=== PATIENT | female | born 1975 | race Two or more races ===

== ENCOUNTER 2021-09-28 00:18 | Emergency (ER) | payer OTHER ==
[~2021-09-28] VITALS: Ht 162.6 cm; Wt 136.1 kg
[2021-09-28 01:18] LABS: Basophils # (auto) 0.1 10 ^3/uL (0-0.2); Basophils % (auto) 1.1 % (0.0-2.0); Eosinophils # (auto) 0.2 10 ^3/uL (0-0.8); Eosinophils % (auto) 2.2 % (0.0-7.0); Hemoglobin 14.6 g/dL (12.2-16.2); Lymphocytes # (auto) 2.8 10 ^3/uL (0.4-5.4); Lymphocytes % (auto) 31.8 % (10.0-50.0); Mean Corpuscular Hemoglobin 33.2 pg (28.0-32.0); Mean Corpuscular Hgb Conc. 34.9 g/dL (32.0-36.0); Mean Corpuscular Volume 95.3 fL (80.0-100.0); Monocytes # (auto) 0.6 10 ^3/uL (0-1.3); Monocytes % (auto) 7.3 % (0.0-12.0); Neutrophils # (auto) 5.1 10 ^3/uL (1.6-8.6); Neutrophils % (auto) 57.6 % (37.0-80.0); Red Cell Distribution Width 13.3 % (11.8-14.3); White Blood Cell 8.8 10^3/uL (4.4-10.8)
[2021-09-28 01:30] LABS: Urine Bacteria FEW /hpf (None Seen); Urine Blood 1+ /uL (Negative); Urine Mucus FEW (None Seen); Urine Specific Gravity 1.026 (1.001-1.035); Urine WBC 5 /hpf (0 - 5)
[2021-09-28 01:38] LABS: BUN/Creatinine Ratio 21.1; Calcium 8.6 mg/dL (8.5-10.1); Potassium 3.5 mmol/L (3.5-5.1)
[2021-09-28 01:40] LABS: Bilirubin, Total 0.2 mg/dL (0.2-1.0); Total Protein 7.3 g/dL (6.4-8.2)
[2021-09-28 03:49] VITALS: BP 126/73
[2021-09-28] MEDS ORDERED: METR500T PO (15:04)
[2021-09-28] MEDS ORDERED: LEVO500T31 PO (15:04)
== END 2021-09-28 03:58 | disposition home or self-care (01) ==
LOC: EDSEX 00:18 → ER 00:18
DX: K92.2 Gastrointestinal hemorrhage, unspecified (principal); Z88.0 Allergy status to penicillin; Z88.6 Allergy status to analgesic agent
CPT/HCPCS: 36415; 80053; 81001; 85025

== ENCOUNTER 2021-09-28 10:25 | Emergency (ER) | payer OTHER, MEDICAID ==
[~2021-09-28] VITALS: Ht 162.6 cm; Wt 132.4 kg
[2021-09-28 13:30] LABS: Basophils # (auto) 0.2 10 ^3/uL (0-0.2); Basophils % (auto) 2.1 % (0.0-2.0); Eosinophils # (auto) 0.2 10 ^3/uL (0-0.8); Eosinophils % (auto) 2.1 % (0.0-7.0); Hemoglobin 15.2 g/dL (12.2-16.2); Lymphocytes # (auto) 2.3 10 ^3/uL (0.4-5.4); Lymphocytes % (auto) 26.7 % (10.0-50.0); Mean Corpuscular Hemoglobin 32.9 pg (28.0-32.0); Mean Corpuscular Hgb Conc. 34.6 g/dL (32.0-36.0); Mean Corpuscular Volume 94.9 fL (80.0-100.0); Monocytes # (auto) 0.6 10 ^3/uL (0-1.3); Monocytes % (auto) 6.6 % (0.0-12.0); Neutrophils # (auto) 5.4 10 ^3/uL (1.6-8.6); Neutrophils % (auto) 62.5 % (37.0-80.0); Nucleated Red Blood Cells % 0.1 %; Red Blood Cells 4.64 10^6/uL (4.0-5.20); Red Cell Distribution Width 13.1 % (11.8-14.3); White Blood Cell 8.7 10^3/uL (4.4-10.8)
[2021-09-28 13:46] LABS: INR 0.97 (0.9-1.15); Partial Thromboplastin Time 27.6 sec (23.6-33.0)
[2021-09-28 14:15] LABS: Albumin 3.3 g/dL (3.4-5.0); BUN/Creatinine Ratio 15.7; Calcium 8.9 mg/dL (8.5-10.1); Magnesium 2.4 mg/dL (1.6-2.6); Potassium 3.5 mmol/L (3.5-5.1)
[2021-09-28 14:20] LABS: Urine Bacteria NONE SEEN /hpf (None Seen); Urine Blood 1+ /uL (Negative); Urine Mucus FEW (None Seen); Urine Specific Gravity 1.026 (1.001-1.035); Urine WBC 3 /hpf (0 - 5)
[2021-09-28 14:23] LABS: Bilirubin, Total 0.6 mg/dL (0.2-1.0); Total Protein 7.7 g/dL (6.4-8.2)
[2021-09-28] MEDS ORDERED: LEVO500T31 PO (15:04)
[2021-09-28] MEDS ORDERED: METR500T PO (15:04)
[2021-09-28 15:10] VITALS: BP 160/98
== END 2021-09-28 15:12 | disposition home or self-care (01) ==
LOC: ER 10:28
DX: K92.2 Gastrointestinal hemorrhage, unspecified (principal); K52.9 Noninfective gastroenteritis and colitis, unspecified; Z88.6 Allergy status to analgesic agent; Z88.0 Allergy status to penicillin
CPT/HCPCS: 36415; 74176; 80053; 81001; 83735; 83880; 85025; 85610; 85730

== ENCOUNTER → 2021-09-29 | Outpatient (CLI) | payer OTHER, MEDICAID ==
[~2021-09-29] MED LIST: LEVO500T31 PO; METR500T PO
[2021-09-29 09:01] LABS: Basophils # (auto) 0.1 10 ^3/uL (0-0.2); Basophils % (auto) 0.9 % (0.0-2.0); Eosinophils # (auto) 0.2 10 ^3/uL (0-0.8); Eosinophils % (auto) 2.3 % (0.0-7.0); Hematocrit 42.7 % (36.0-46.0); Hemoglobin 14.9 g/dL (12.2-16.2); Lymphocytes # (auto) 2.3 10 ^3/uL (0.4-5.4); Mean Corpuscular Hemoglobin 33.1 pg (28.0-32.0); Mean Corpuscular Volume 94.7 fL (80.0-100.0); Monocytes # (auto) 0.5 10 ^3/uL (0-1.3); Monocytes % (auto) 6.5 % (0.0-12.0); Neutrophils # (auto) 4.8 10 ^3/uL (1.6-8.6); Neutrophils % (auto) 61.3 % (37.0-80.0); Nucleated Red Blood Cells % 0.1 %; Red Blood Cells 4.51 10^6/uL (4.0-5.20); Red Cell Distribution Width 13.5 % (11.8-14.3); White Blood Cell 7.8 10^3/uL (4.4-10.8)
[2021-09-29 09:11] LABS: Urine Bacteria MOD /hpf (None Seen); Urine Blood 1+ /uL (Negative); Urine Specific Gravity 1.019 (1.001-1.035); Urine WBC 1 /hpf (0 - 5)
[2021-09-29 09:37] LABS: Potassium 3.7 mmol/L (3.5-5.1)
[2021-09-29 09:45] LABS: Albumin 3.3 g/dL (3.4-5.0); BUN/Creatinine Ratio 18.3; Bilirubin, Total 0.5 mg/dL (0.2-1.0); Calcium 9.1 mg/dL (8.5-10.1); Total Protein 7.8 g/dL (6.4-8.2)
== END | disposition home or self-care (01) ==
LOC: LAB 08:27
PROVIDERS: ATTEND Student in an Organized Health Care Education/Training Program
DX: I10 Essential (primary) hypertension (principal); R73.9 Hyperglycemia, unspecified; M32.9 Systemic lupus erythematosus, unspecified
CPT/HCPCS: 36415; 80053; 80061; 81001; 83036; 84443; 85025; 86431

== ENCOUNTER 2022-03-04 13:01 | Day surgery (SDC) | payer OTHER, MEDICAID ==
[2022-03-03 12:23] LABS: Basophils # (auto) 0.1 10 ^3/uL (0-0.2); Basophils % (auto) 1.1 % (0.0-2.0); Eosinophils # (auto) 0.1 10 ^3/uL (0-0.8); Eosinophils % (auto) 1.6 % (0.0-7.0); Hematocrit 44.4 % (36.0-46.0); Hemoglobin 15.1 g/dL (12.2-16.2); Lymphocytes # (auto) 2.6 10 ^3/uL (0.4-5.4); Lymphocytes % (auto) 31.7 % (10.0-50.0); Mean Corpuscular Hemoglobin 31.9 pg (28.0-32.0); Mean Corpuscular Hgb Conc. 34.1 g/dL (32.0-36.0); Mean Corpuscular Volume 93.6 fL (80.0-100.0); Monocytes # (auto) 0.7 10 ^3/uL (0-1.3); Monocytes % (auto) 8.1 % (0.0-12.0); Neutrophils # (auto) 4.8 10 ^3/uL (1.6-8.6); Neutrophils % (auto) 57.5 % (37.0-80.0); Nucleated Red Blood Cells % 0.1 %; Red Blood Cells 4.74 10^6/uL (4.0-5.20); Red Cell Distribution Width 13.6 % (11.8-14.3); White Blood Cell 8.3 10^3/uL (4.4-10.8)
[2022-03-03 13:04] LABS: Albumin 3.7 g/dL (3.4-5.0); Calcium 9.1 mg/dL (8.5-10.1); Potassium 3.6 mmol/L (3.5-5.1)
[2022-03-03 13:10] LABS: BUN/Creatinine Ratio 17.9; Bilirubin, Total 0.9 mg/dL (0.2-1.0); Total Protein 7.5 g/dL (6.4-8.2)
[2022-03-03 13:12] LABS: INR 0.97 (0.9-1.15); Partial Thromboplastin Time 29.1 sec (24.6-33.4)
[~2022-03-04] VITALS: Ht 162.6 cm; Wt 131.5 kg
[~2022-03-04 13:01] MED LIST changes: +BACL20TA PO; +CEL100T PO; +GABA300C10 PO; +LEVE500T32 PO; -LEVO500T31 PO; +LURA40TA PO; -METR500T PO; +TOPI1CAP12 PO; +TRAZ100T3 PO
[2022-03-04] MEDS ORDERED: SODIUM CHLORIDE LOCK 10 ML ONE (15:36)
[2022-03-04] MEDS ORDERED: LIDOCAINE VISCOUS 2% 15ML UD ONE (15:38)
[2022-03-04] MEDS: fentaNYL CITRATE 100 MCG/2 ML VL ONE ×2 (16:04→16:07)
[2022-03-04] MEDS: MIDAZOLAM HCL 5 MG/ML-1ML VIAL ONE ×3 (16:04→16:10)
[2022-03-04] MEDS: diphenhdrAMINE HCL 50 MG/1 ML VL ONE ×2 (16:04→16:05)
[2022-03-04 16:35] VITALS: BP 128/72
== END 2022-03-04 17:07 | disposition home or self-care (01) ==
LOC: GI 13:01
PROVIDERS: ATTEND Internal Medicine Gastroenterology
DX: K52.9 Noninfective gastroenteritis and colitis, unspecified (principal); K64.8 Other hemorrhoids; I10 Essential (primary) hypertension; G62.9 Polyneuropathy, unspecified; Z90.49 Acquired absence of other specified parts of digestive tract; Z79.899 Other long term (current) drug therapy; Z20.822 Contact with and (suspected) exposure to COVID-19; Z86.73 Personal history of transient ischemic attack (TIA), and cerebral infarction without residual deficits; Z98.891 History of uterine scar from previous surgery
CPT/HCPCS: 36415; 45380; 80053; 84702; 85025; 85610; 85730; 88305; J1200; J2250; J3010; J7030; U0003; 99152

== ENCOUNTER → 2022-04-29 | Emergency (ER) | payer OTHER, MEDICAID | END | disposition left against medical advice (07) | LOC: ER 18:14 | DX: M25.512 Pain in left shoulder (principal); Z53.21 Procedure and treatment not carried out due to patient leaving prior to being seen by health care provider ==

== ENCOUNTER 2024-01-31 09:22 | Emergency (ER) | payer OTHER ==
[~2024-01-31] VITALS: Ht 162.6 cm; Wt 120.0 kg
[~2024-01-31 09:22] MED LIST changes: +GABA-1250 PO; -GABA300C10 PO; -LEVE500T32 PO; +LEVE500T40 PO; -LURA40TA PO; +LURA40TA2 PO; +TRAZ-228 PO; -TRAZ100T3 PO
[2024-01-31] MEDS: HYDROmorphone HCL 2 MG/ML VL/or syr IV ONE (11:00)
[2024-01-31] MEDS: SODIUM CHLORIDE 0.9% 500 ML IVB ONE (11:11)
[2024-01-31] MEDS: METOCLOPRAMIDE HCL 5MG/ml INJ 2ml VIAL IV ONE (11:23)
[2024-01-31] MEDS: DexAMETHasone SOD PHOS 10MG/1ML VIAL INJ IV ONE (11:24)
[2024-01-31 12:00] LABS: Basophils # (auto) 0 10 ^3/uL (0-0.2); Basophils % (auto) 0.4 % (0.0-2.0); Eosinophils # (auto) 0 10 ^3/uL (0-0.8); Eosinophils % (auto) 0.3 % (0.0-7.0); Hematocrit 42.6 % (36.0-46.0); Hemoglobin 14.9 g/dL (12.2-16.2); Lymphocytes # (auto) 1.6 10 ^3/uL (0.4-5.4); Lymphocytes % (auto) 13.8 % (10.0-50.0); Mean Corpuscular Hemoglobin 33.8 pg (28.0-32.0); Mean Corpuscular Hgb Conc. 34.9 g/dL (32.0-36.0); Mean Corpuscular Volume 96.9 fL (80.0-100.0); Monocytes # (auto) 0.4 10 ^3/uL (0-1.3); Monocytes % (auto) 3.5 % (0.0-12.0); Neutrophils # (auto) 9.3 10 ^3/uL (1.6-8.6); Nucleated Red Blood Cells % 0.1 %; Platelet Count (auto) 282 10^3/uL (140-450); Red Cell Distribution Width 13.1 % (11.8-14.3); White Blood Cell 11.3 10^3/uL (4.4-10.8)
[2024-01-31 12:08] LABS: Alanine Aminotransferase 10 U/L (7-40); Albumin 4.4 g/dL (3.2-4.8); Alkaline Phosphatase 93 U/L (46-116); Anion Gap 8 (5-15); Aspartate Aminotransferase 9 U/L (13-40); BUN/Creatinine Ratio 23.2 (10.0-20.0); Blood Urea Nitrogen 19 mg/dL (9-23); Calcium 9.1 mg/dL (8.7-10.4); Carbon Dioxide 24 mmol/L (20-30); Chloride 109 mmol/L (98-107); Glucose 100 mg/dL (74-106); Lipase 32 U/L (12-53); Magnesium 1.9 mg/dL (1.6-2.6); Potassium 3.7 mmol/L (3.5-5.1); Sodium 141 mmol/L (136-145)
[2024-01-31 12:10] LABS: INR 0.99 (0.9-1.15); Partial Thromboplastin Time 25.4 SEC (24.5-34.5); Prothrombin Time 10.5 sec (9.3-11.8)
[2024-01-31 15:20] VITALS: BP 115/74; PULSE 62; RESP 15; TEMP 98; O2SAT 100
== END 2024-01-31 15:22 | disposition home or self-care (01) ==
LOC: ER 09:22
DX: K52.9 Noninfective gastroenteritis and colitis, unspecified (principal); K92.2 Gastrointestinal hemorrhage, unspecified; R10.9 Unspecified abdominal pain; I10 Essential (primary) hypertension; Z88.0 Allergy status to penicillin; Z79.899 Other long term (current) drug therapy; Z88.6 Allergy status to analgesic agent
CPT/HCPCS: 36415; 71046; 74176; 80053; 83690; 83735; 85025; 85610; 85730; 96361; 96374; 96375; 99285; J1100; J1170; J2765; J7030; J7040

== ENCOUNTER → 2024-03-23 | Outpatient (CLI) | payer OTHER | END | disposition home or self-care (01) | LOC: LAB 10:06 | PROVIDERS: ATTEND Specialist | DX: K75.4 Autoimmune hepatitis (principal); R19.7 Diarrhea, unspecified | CPT/HCPCS: 86038 ==

== ENCOUNTER → 2024-03-30 | Outpatient (CLI) | payer OTHER | END | disposition home or self-care (01) | LOC: LAB 11:15 | PROVIDERS: ATTEND Specialist | DX: K75.4 Autoimmune hepatitis (principal); R19.7 Diarrhea, unspecified | CPT/HCPCS: 85048; 87177 ==

== ENCOUNTER → 2024-07-11 | Outpatient (CLI) | payer OTHER ==
[2024-07-11 11:11] LABS: Basophils # (auto) 0.1 10 ^3/uL (0-0.2); Basophils % (auto) 1.1 % (0.0-2.0); Eosinophils # (auto) 0.2 10 ^3/uL (0-0.8); Eosinophils % (auto) 1.8 % (0.0-7.0); Hematocrit 45.2 % (36.0-46.0); Hemoglobin 15.4 g/dL (12.2-16.2); Lymphocytes # (auto) 2.3 10 ^3/uL (0.4-5.4); Lymphocytes % (auto) 26.4 % (10.0-50.0); Mean Corpuscular Hemoglobin 32.6 pg (28.0-32.0); Mean Corpuscular Hgb Conc. 34.1 g/dL (32.0-36.0); Mean Corpuscular Volume 95.6 fL (80.0-100.0); Monocytes # (auto) 0.6 10 ^3/uL (0-1.3); Monocytes % (auto) 6.5 % (0.0-12.0); Neutrophils # (auto) 5.6 10 ^3/uL (1.6-8.6); Neutrophils % (auto) 64.2 % (37.0-80.0); Platelet Count (auto) 298 10^3/uL (140-450); Red Blood Cells 4.73 10^6/uL (4.0-5.20); Red Cell Distribution Width 12.7 % (11.8-14.3); White Blood Cell 8.7 10^3/uL (4.4-10.8)
[2024-07-11 11:44] LABS: Alanine Aminotransferase 14 U/L (7-40); Albumin 4.6 g/dL (3.2-4.8); Anion Gap 7 (5-15); Aspartate Aminotransferase 17 U/L (13-40); BUN/Creatinine Ratio 12.8 (10.0-20.0); Blood Urea Nitrogen 10 mg/dL (9-23); Calcium 10.3 mg/dL (8.7-10.4); Carbon Dioxide 29 mmol/L (20-31); Chloride 103 mmol/L (98-107); Glucose 93 mg/dL (74-106); Lipase 37 U/L (12-53); Potassium 3.9 mmol/L (3.5-5.1); Sodium 139 mmol/L (136-145); Urine Bacteria FEW /hpf (None Seen); Urine Blood 1+ /uL (Negative); Urine Clarity Turbid (Clear); Urine Color Yellow (Yellow); Urine Mucus FEW (None Seen); Urine Protein, UAD TRACE (Negative); Urine Specific Gravity 1.023 (1.001-1.035); Urine Squamous Epithelial Cell FEW /hpf (<5); Urine Urobilinogen Normal (Negative); Urine WBC 1 /HPF (0-5); Urine pH 5.5 (5.0-9.0)
[2024-07-11 11:45] LABS: Bilirubin, Total 0.7 mg/dL (0.2-1.0)
[2024-07-11 11:46] LABS: Total Protein 7.2 g/dL (5.7-8.2)
[2024-07-11 11:48] LABS: Erythrocyte Sedimentation Rate 25 mm/hr (0-20)
[2024-07-11 12:29] LABS: Alkaline Phosphatase 110 U/L (46-116)
[2024-07-12 13:08] LABS: Triglycerides 143 mg/dL (< 150)
[2024-07-12 13:09] LABS: Cholesterol 172 mg/dL (< 200); HDL Cholesterol 53 mg/dL (40-59)
[2024-07-12 13:11] LABS: LDL Cholesterol 104 mg/dL (< 100)
== END | disposition home or self-care (01) ==
LOC: LAB 10:30
PROVIDERS: ATTEND Student in an Organized Health Care Education/Training Program
DX: R73.9 Hyperglycemia, unspecified (principal); R03.0 Elevated blood-pressure reading, without diagnosis of hypertension; M06.9 Rheumatoid arthritis, unspecified; K86.89 Other specified diseases of pancreas
CPT/HCPCS: 36415; 80053; 80061; 81001; 83036; 83690; 84443; 85025; 85652

== ENCOUNTER 2024-07-23 08:30 | Inpatient (IN) | payer OTHER ==
[~2024-07-23] VITALS: Ht 162.6 cm; Wt 118.5 kg
--- NOTE | 2024-07-23 08:52 | ECG ---
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
--- NOTE | 2024-07-23 09:37 | ED.PDOC ---
GI ASSESSMENT HPI Comments 49 year old female presents to the ED with chief complaint of GI bleed. Patient reports that she had been constipated for the past few days, however, today she had a very large bowel movement with a large amount of blood also noted. Patient relays that she normally has chronic diarrhea due to colitis. Patient states she also had associated nausea and vomiting for 4 days, but the last 2 days there have been no episodes along with an inability to urinate with bilateral lower back pain since today. Patient notes that she had a colonoscopy done a few months ago with another currently being scheduled. Patient reports she is not on any blood thinners. Patient denies any dizziness, fever, chills, hematuria, dysuria, hematemesis, or cough. Chief Complaint: GI Bleed Time Seen by MD: 09:31 Primary Care Provider: UNKNOWN Reviewed Notes: Nurses Notes, Medications, Allergies Allergies: Coded Allergies: Aspirin (Verified Allergy, Intermediate, 09/28/21) Penicillins (Verified Allergy, Intermediate, 09/28/21) Home Meds Reported Medications Gabapentin (Gabapentin) 300 Mg Cap, 300 MG PO TID, CAP 03/03/22 Baclofen (Baclofen) 20 Mg Tab, 20 MG PO TID, TAB 03/03/22 Celecoxib (CeleBREX CAPSULE) 100 Mg Cp, 100 MG PO, CAP 03/03/22 Trazodone Hcl (Trazodone Hcl) 100 Mg Tab, 100 MG PO QPM, TAB 03/03/22 Lurasidone Hydrochloride (LATUDA) 40 Mg Tab, 40 MG PO, TAB 03/03/22 Topiramate (Topiramate ER) 25 Mg Cap, 25 MG PO, CAP 03/03/22 Levetiracetam (Keppra) 500 Mg Tab, 500 MG PO BID, TAB 03/03/22 Information Source: Patient Mode of Arrival: Ambulatory Timing: Days Duration: Since onset Prehospital treatment: None Quality: Aching Vomitus: Watery, None Stool: Blood Streaked, Watery Severity: Moderate Recent: None Recent Hx of: None Pain Location: None Modifying Factors: Nothing Associated sign and symptoms: Nausea, Vomiting, Diarrhea, Abdominal Pain, Blood in Stool Past Medical History PAST MEDICAL HISTORY: HTN, Liver Past Medical History (Other): Lupus, Colitis Surgical History: Denies all surgeries ENTRY LEVEL PROJECT COORDINATOR History: No Pertinent ENTRY LEVEL PROJECT COORDINATOR History Family History Family History: Reviewed,noncontributory to illness Social History Smoker: Non-Smoker Alcohol: Denies ETOH Use Drugs: Denies Drug Use Lives In: Home Constitutional: denies: chills, diaphoresis, fatigue, fever, malaise, sweats, weakness, others EENTM: denies: blurred vision, double vision, ear bleeding, ear discharge, ear drainage, ear pain, ear ringing, eye pain, eye redness, hearing loss, mouth pain, mouth swelling, nasal discharge, nose bleeding, nose congestion, nose pain, photophobia, tearing, throat pain, throat swelling, voice changes, others Respiratory: denies: cough, hemoptysis, orthopnea, SOB at rest, shortness of breath, SOB with excertion, stridor, wheezing, others Cardiovascular: denies: chest pain, dizzy spells, diaphoresis, Dyspnea on exertion, edema, irregular heart beat, left arm pain, lightheadedness, palpitations, PND, syncope, others Gastrointestinal: reports: abdominal pain, blood streaked bowels, diarrhea, nausea, rectal bleeding, vomiting; denies: abdomen distended, constipated, dysphagia, difficulty swallowing, hematemesis, melena, poor appetite, poor fluid intake, rectal pain, others Genitourinary: reports: others (Difficulty urinating); denies: abnormal vagina bleeding, burning, dyspareunia, dysuria, flank pain, frequency, hematuria, incontinence, pain, , vagina discharge, urgency Neurological: denies: dizziness, fainting, headache, left sided numbness, left sided weakness, numbness, paresthesia, pre-existing deficit, right sided numbness, right sided weakness, seizure, speech problems, tingling, tremors, weakness, others Musculoskeletal: reports: back pain; denies: gout, joint pain, joint swelling, muscle pain, muscle stiffness, neck pain, others Integumetry: denies: bruises, change in color, change in hair/nails, dryness, laceration, lesions, lumps, rash, wounds, others Allergic/Immunocompromised: denies: Difficulty Healing, Frequent Infections, Hives, Itching, others Hematologic/Lymphatic: denies: anemia, blood clots, easy bleeding, easy bruising, swollen glands, others Endocrine: denies: excessive hunger, excessive sweating, excessive thirst, excessive urination, flushing, intolerance to cold, intolerance to heat, unexplained weight gain, unexplained weight loss, others Psychiatric: denies: anxiety, bipolar disorder, depression, hopeless, panic disorder, schizophrenia, sleepless, suicidal, others All Other Systems: Reviewed and Negative Physical Exam General Appearance: No Apparent Distress, Normal HEENT: Normal ENT Inspection, PERRL/EOMI Neck: Full Range of Motion, Non-Tender, Normal, Normal Inspection Respiratory: Chest Non-Tender, Lungs Clear, No Accessory Muscle Use, No Res piratory Distress, Normal Breath Sounds Cardiovascular: No Edema, No JVD, No Murmur, No Gallop, Normal Peripheral Pulses, Regular Rate/Rhythm Breast Exam: Deferred Gastrointestinal: No Organomegaly, Non Tender, No Pulsatile Mass, Normal Bowel Sounds, Soft Genitalia: Deferred Pelvic: Deferred Rectal: Deferred Extremities: No calf tenderness, Normal capillary refill, Normal inspection, Normal range of motion, Non-tender, No pedal edema Musculoskeletal : Apperance: Normal Neurologic: Alert, director phone II-XII nml as Tested, No Motor Deficits, Normal Affect, Normal Mood, No Sensory Deficits Cerebellar Function: Normal Reflexes: Normal Skin: Dry, Pallor (Pale appearing), Warm Lymphatic: No Adenopathy Was a procedure done? Was a procedure done?: No GI differential Dx Differential Diagnosis: Appendicitis, Cholecystitis, Esophagitis, Gastritis/PUD, Gastroenteritis, GI hemorrhage, UTI, Urolithiasis, Dehydration, Electrolyte Imbalance, Hypovolemia X-Ray, Labs, Meds, VS Vital Signs Date Time Temp Pulse Resp B/P (MAP) Pulse Ox O2 Delivery O2 Flow Rate FiO2 07/23/24 11:01 90 16 96 Room Air 07/23/24 11:01 98.3 90 16 161/104 (123) 96 98.3 07/23/24 08:46 64 07/23/24 08:42 97.8 89 17 160/104 (122) 95 Lab Test 07/23/24 09:26 Range/Units White Blood Count 9.1 4.4-10.8 10^3/uL Red Blood Count 4.73 4.0-5.20 10^6/uL Hemoglobin 15.1 12.2-16.2 g/dL Hematocrit 44.7 36.0-46.0 % Mean Corpuscular Volume 94.5 80.0-100.0 fL Mean Corpuscular Hemoglobin 32.0 28.0-32.0 pg Mean Corpuscular Hemoglobin Concent 33.8 32.0-36.0 g/dL Red Cell Distribution Width 12.9 11.8-14.3 % Platelet Count 271 140-450 10^3/uL Mean Platelet Volume 8.2 6.9-10.8 fL Neutrophils (%) (Auto) 67.3 37.0-80.0 % Lymphocytes (%) (Auto) 23.7 10.0-50.0 % Monocytes (%) (Auto) 6.6 0.0-12.0 % Eosinophils (%) (Auto) 1.5 0.0-7.0 % Basophils (%) (Auto) 0.9 0.0-2.0 % Neutrophils # (Auto) 6.1 1.6-8.6 10 ^3/uL Lymphocytes # (Auto) 2.2 0.4-5.4 10 ^3/uL Monocytes # (Auto) 0.6 0-1.3 10 ^3/uL Eosinophils # (Auto) 0.1 0-0.8 10 ^3/uL Basophils # (Auto) 0.1 0-0.2 10 ^3/uL Nucleated Red Blood Cells 0.0 % Sodium Level 140 136-145 mmol/L Potassium Level 3.6 3.5-5.1 mmol/L Chloride Level 106 98-107 mmol/L Carbon Dioxide Level 25 20-31 mmol/L Anion Gap 9 5-15 Blood Urea Nitrogen 12 9-23 mg/dL Creatinine 0.77 0.550-1.02 mg/dL Glomerular Filtration Rate Calc 95 >90 mL/min BUN/Creatinine Ratio 15.6 10.0-20.0 Serum Glucose 99 74-106 mg/dL Calcium Level 9.9 8.7-10.4 mg/dL Current Medications Medications (Trade) Dose Ordered Sig/Luis Route Start Time Stop Time Status Last Admin Diphenhydramine HCl (Benadryl Injection) 50 mg ONCE ONCE IV 07/23/24 11:15 07/23/24 11:16 DC 07/23/24 11:43 Methylprednisolone Sodium Succinate (Solu Medrol) 125 mg ONCE ONCE IV 07/23/24 11:15 07/23/24 11:16 DC 07/23/24 11:43 Time of 1ST Reevaluation: 10:31 Reevaluation 1ST: Unchanged Patient Education/Counseling: Diagnosis, Treatment Family Education/Counseling: No Family Present Additional Information The following tests were ordered, and results were reviewed by me: UA, CBC, BMP, EKG, CT Abd/Pel W/ IV Con Additional Information was gathered from interviewing the following independent historians: None I reviewed and agreed with the following test results read by other providers: CT Abd/Pel W/ IV Con I discussed treatment and results with medical personnel. Departure 1 Departure Time of Disposition: 14:36 (Patient with signs and symptoms can not for lower GI bleed. We will admit patient for further workup and expert consultation) Impression: Primary Impression: Lower GI bleed Additional Impressions: Abdominal pain Qualified Codes: R10.84 - Generalized abdominal pain Generalized weakness Disposition: 09 ADMITTED INPATIENT Admit to: Med Surg Condition: Serious Critical Care Note Critical Care Time?: No Stability Stability form required: No Heart Score Heart Score: Heart Score Response (Comments) Value History N/A 0 EKG N/A 0 Age N/A 0 Risk Factors N/A 0 Troponin N/A 0 Total 0 I personally scribed for JOSE GOMEZ MD ([email or web address]) on 07/23/24 at 09:37. Electronically submitted by Wes Wagner ([email or web address]). JOSE GOMEZ MD Jul 23, 2024 09:37
[2024-07-23 10:30] LABS: Basophils # (auto) 0.1 10 ^3/uL (0-0.2); Basophils % (auto) 0.9 % (0.0-2.0); Eosinophils # (auto) 0.1 10 ^3/uL (0-0.8); Eosinophils % (auto) 1.5 % (0.0-7.0); Hematocrit 44.7 % (36.0-46.0); Hemoglobin 15.1 g/dL (12.2-16.2); Lymphocytes # (auto) 2.2 10 ^3/uL (0.4-5.4); Lymphocytes % (auto) 23.7 % (10.0-50.0); Mean Corpuscular Hgb Conc. 33.8 g/dL (32.0-36.0); Mean Corpuscular Volume 94.5 fL (80.0-100.0); Monocytes # (auto) 0.6 10 ^3/uL (0-1.3); Monocytes % (auto) 6.6 % (0.0-12.0); Neutrophils # (auto) 6.1 10 ^3/uL (1.6-8.6); Neutrophils % (auto) 67.3 % (37.0-80.0); Platelet Count (auto) 271 10^3/uL (140-450); Red Blood Cells 4.73 10^6/uL (4.0-5.20); Red Cell Distribution Width 12.9 % (11.8-14.3); White Blood Cell 9.1 10^3/uL (4.4-10.8)
[2024-07-23 10:40] LABS: Chloride 106 mmol/L (98-107); Potassium 3.6 mmol/L (3.5-5.1); Sodium 140 mmol/L (136-145)
[2024-07-23 10:41] LABS: Anion Gap 9 (5-15); Calcium 9.9 mg/dL (8.7-10.4); Carbon Dioxide 25 mmol/L (20-31)
[2024-07-23 10:46] LABS: Glucose 99 mg/dL (74-106)
[2024-07-23] MEDS: methylPREDNISolone SOD SUCC 125 MG/2 ML VL IV ONE (11:43)
[2024-07-23] MEDS: diphenhdrAMINE HCL 50 MG/1 ML VL IV ONE (11:43)
[2024-07-23 12:11] LABS: BUN/Creatinine Ratio 15.6 (10.0-20.0); Blood Urea Nitrogen 12 mg/dL (9-23)
[2024-07-23] MEDS: IOHEXOL 300 MG/ML 100ML BOTTLE IJ ONE (14:40)
[2024-07-23] MEDS ORDERED: MORPHINE SULFATE INJ 2 MG/ml SYRG IV PRN (15:00)
[2024-07-23] MEDS ORDERED: ONDANSETRON HCL 4 MG/2 ML VIAL IV PRN (15:00)
[2024-07-23] MEDS ORDERED: ACETAMINOPHEN 325 MG TAB PO PRN (15:00)
[2024-07-23] MEDS ORDERED: ROSU5TAB24 PO (15:00)
[2024-07-23] MEDS ORDERED: hydrALAZINE HCL 20 MG/ML VL IV PRN (15:00)
[2024-07-23] MEDS ORDERED: PANTOPRAZOLE 40 MG/10 ML VIAL INJ IV ONE (15:00)
[2024-07-23] MEDS ORDERED: LOSARTAN POTASSIUM 50 MG TAB PO SCH (15:00)
[2024-07-23] MEDS ORDERED: hydroCHLOROthiazide 25 MG TAB PO SCH (15:00)
[2024-07-23] MEDS ORDERED: HYDROcodone-ACET 5/325MG TAB PO PRN (15:00)
[2024-07-23 15:02] VITALS: BP 155/105; TEMP 98.9
[2024-07-23 15:03] VITALS: PULSE 95; RESP 16; O2SAT 100
--- NOTE | 2024-07-23 15:08 | DVHHP2 ---
History of Present Illness Reason for Visit: Blood in stools History of Present Illness This 49-year-old female with past medical history of chronic diarrhea, colitis, presents in the ED with a chief complaint of blood in stools. The patient reports has been constipated for the past few days, today bowel movement associated with bright red blood with clots prompting her to visit the emergency department. Patient denies dizziness, syncope, chest pain, palpitations, nausea, vomiting, or other acute symptoms. Other history of hypertension, tobacco use, insomnia, obesity, lupus, autoimmune hepatitis. Past Medical History As stated in HPI Past Surgical History Denies Family History Reviewed, non-contributory to the management of this case. Past Social History Admits to tobacco use Denies EtOH or illicit drug use Review of Systems Constitutional: Yes: Malaise; No: Fever, Chills, Sweats, Weakness, Other Eyes: No: Pain, Vision change, Conjunctivae inflammation, Eyelid inflammation, Other, Redness ENT: No: Ear pain, Ear discharge, Nose pain, Nose discharge, Nose congestion, Mouth pain, Mouth swelling, Throat pain, Throat swelling, Other Respiratory: No: Cough, Dry, Shortness of breath, SOB with excertion, Wheezing, Hemoptysis, Pleuritic Pain, Sputum, Wheezing, Other Cardiovascular: No: Chest Pain, Palpitations, Orthopnea, Paroxysmal Noc. Dyspn ea, Edema, Lt Headedness, Other Gastrointestinal: Melena, Other; No: Nausea, Vomiting, Abdominal Pain, Diarrhea, Constipation, Hematochezia Genitourinary: No Dysuria, No Frequency, No Incontinence, No Hematuria, No Retention, No Other Musculoskeletal: No: other, neck pain, shoulder pain, arm pain, back pain, hand pain, leg pain, foot pain Skin: No: Rash, Lesions, Jaundice, Bruising, Other Neurological: No: Weakness, Numbness, Incoordination, Change in speech, Confusion, Seizures, Other Allergies: Coded Allergies: Aspirin (Verified Allergy, Intermediate, 09/28/21) Penicillins (Verified Allergy, Intermediate, 09/28/21) Medications Current Medications Medications Dose Ordered Sig/Luis Route Start Time Stop Time Status Last Admin Dose Admin Pantoprazole Sodium 40 mg DAILY IV 07/24/24 10:00 UNV Exam Vital Signs Vital Signs Date Time Temp Pulse Resp B/P (MAP) Pulse Ox O2 Delivery O2 Flow Rate FiO2 07/23/24 11:01 90 16 96 Room Air 07/23/24 11:01 98.3 161/104 (123) 98.3 General Appearance: Alert, Oriented X3, Cooperative, mild distress HEENT: Atraumatic, PERRLA, EOMI, Mucous membr. moist/pink Respiratory: Clear to auscultation, Normal air movement Cardiovascular: Regular rate, Normal S1, Normal S2 Abdominal: Normal bowel sounds, Soft, No tenderness Extremities: No clubbing, No cyanosis, No edema, Normal pulses Skin: No rashes, No breakdown, No significant lesion Neuro: Normal gait, Sensation intact Psych/Mental Status: Mental status NL Labs/Xrays Labs Test 07/23/24 09:26 Range/Units White Blood Count 9.1 4.4-10.8 10^3/uL Red Blood Count 4.73 4.0-5.20 10^6/uL Hemoglobin 15.1 12.2-16.2 g/dL Hematocrit 44.7 36.0-46.0 % Mean Corpuscular Volume 94.5 80.0-100.0 fL Mean Corpuscular Hemoglobin 32.0 28.0-32.0 pg Mean Corpuscular Hemoglobin Concent 33.8 32.0-36.0 g/dL Red Cell Distribution Width 12.9 11.8-14.3 % Platelet Count 271 140-450 10^3/uL Mean Platelet Volume 8.2 6.9-10.8 fL Neutrophils (%) (Auto) 67.3 37.0-80.0 % Lymphocytes (%) (Auto) 23.7 10.0-50.0 % Monocytes (%) (Auto) 6.6 0.0-12.0 % Eosinophils (%) (Auto) 1.5 0.0-7.0 % Basophils (%) (Auto) 0.9 0.0-2.0 % Neutrophils # (Auto) 6.1 1.6-8.6 10 ^3/uL Lymphocytes # (Auto) 2.2 0.4-5.4 10 ^3/uL Monocytes # (Auto) 0.6 0-1.3 10 ^3/uL Eosinophils # (Auto) 0.1 0-0.8 10 ^3/uL Basophils # (Auto) 0.1 0-0.2 10 ^3/uL Nucleated Red Blood Cells 0.0 % Sodium Level 140 136-145 mmol/L Potassium Level 3.6 3.5-5.1 mmol/L Chloride Level 106 98-107 mmol/L Carbon Dioxide Level 25 20-31 mmol/L Anion Gap 9 5-15 Blood Urea Nitrogen 12 9-23 mg/dL Creatinine 0.77 0.550-1.02 mg/dL Glomerular Filtration Rate Calc 95 >90 mL/min BUN/Creatinine Ratio 15.6 10.0-20.0 Serum Glucose 99 74-106 mg/dL Calcium Level 9.9 8.7-10.4 mg/dL Assessment/Plan Assessment/Plan # Rule out GI bleed # hx of colitis GI consult CT abdomen pending PPI FOBT pending Clear liquid diet # hypertension Continue with losartan and hydrochlorothiazide Hydralazine as needed Monitor # insomnia Trazodone # tobacco dependence Nicotine patch Smoking cessation counseled # morbid obesity Lifestyle modification counseled with diet, regular exercise, weight loss # hx of lupus # hx of autoimmune hepatitis Medical plan discussed with patient and RN Plan discussed with: Patient My Orders Orders - JIMY SHELL 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 Procedure Category Date Status Time Stool Occult Blood LAB 07/23/24 Logged 14:56 Pantoprazole PHA 07/24/24 Logged (Protonix) 10:00 Pantoprazole PHA 07/23/24 Logged (Protonix) 15:00 * Gi D[facility] Mussel Farmer CONS 07/23/24 Transmitted 14:56 Admit ADMIT 07/23/24 Transmitted 14:57 Code Status CODE 07/23/24 Transmitted 14:57 Hydrocodone-Acet PHA 07/23/24 Logged 5/325mg Tab ([place] 15:00 Ondansetron Hcl PHA 07/23/24 Logged (Zofran) 15:00 Complete Blood Count LAB 07/24/24 Verified 04:00 Comprehensive LAB 07/24/24 Verified Metabolic Panel 04:00 Condition: Fair AMADO 07/23/24 In Process 14:57 Acetaminophen Tablet PHA 07/23/24 Logged (Tylenol Tablet) 15:00 Clear Liq Diet DIET 07/23/24 Transmitted Dinner Morphine Sulfate PHA 07/23/24 Logged Injection 15:00 (Nf) Trazodone Hcl PHA 07/23/24 Logged 18:00 Hydralazine Injection PHA 07/23/24 Verified (Apresoline Inject 15:00 Losartan Tablet PHA 07/23/24 Verified (Cozaar Tablet) 15:00 Hydrochlorothiazide PHA 07/23/24 Verified Tablet (Hydrochlorot 15:00 Date of Service: Jul 23, 2024 Billing Provider: JIMY SHELL Common Visit Codes: [id number] INP/OBS CARE (HIGH) JIMY SHELLP Jul 23, 2024 15:08
[2024-07-23] MEDS ORDERED: NICOTINE 7MG/24HR TOPICAL PATCH TD ONE (15:15)
--- NOTE | 2024-07-23 15:17 | DVH ---
Exam: CT CT AB PEL WITH IV CON ONLY History: abdominal pain, brbpr COMPARISON: CT abdomen/ pelvis 01/31/2024; CT abdomen/ pelvis 09/28/2021 Technique: Multidetector spiral CT of the abdomen and pelvis was performed from lung bases to pubic s ymphysis. Intravenous contrast was administered during this examination. Portal venous imaging was obtained. Axial, coronal and sagittal multiplanar reformats were performed by the technologist on a separate workstation. Radiation Dose : 1. Abdomen/Pelvis: CTDIvol 24.93mGy, DLP 1458.99 mGy*cm. CONTRAST: Findings: Lung Bases: No acute or significant lung base finding. Normal heart size. No pleural or pericardial effusion. Liver: The liver is normal in size. No focal lesions. Normal hepatic vascular enhancement. Gallbladder and Biliary Tree: Gallbladder is surgically absent. Mild intra and extrahepatic biliary d uctal dilatation is similar from prior and likely related to cholecystectomy. Spleen: Unremarkable Pancreas: The pancreas is normal in appearance without focal lesions or abnormal enhancement. Adrenal Glands: Unremarkable Kidneys: No hydronephrosis. Bladder: Unremarkable Bowel: Mild wall thickening in the stomach is likely related to poor distention. Small bowel and colo n are normal in caliber and distribution. There is mild irregularity of the contour with some soft ti ssue fullness of a small bowel segment in the left upper abdomen ( series 2, image 35, series 601, im age 53). There is mild wall thickening in the sigmoid colon. Normal appendix is visualized in the rig ht lower quadrant without findings of appendicitis. Ascites: Absent Lymphadenopathy: No mesenteric, retroperitoneal or periportal lymphadenopathy. Abdominal Wall and Mesentery: Small fat containing right bochdalek hernia is unchanged (series 602, i mage 65). Vasculature: The visualized abdominal aorta is normal in size and caliber. Abdominal and pelvic vess els demonstrate normal enhancement. Pelvic Organs: Round hypoenhancing 1.5 cm structure along the superior aspect of the uterus likely re presents a fibroid (series 602, image 84). Musculoskeletal: No aggressive focal bony lesions, acute fractures or dislocation. There is mild soft tissue thickening in the presacral space which is stable compared to 09/28/2021. IMPRESSION: 1. Mild wall thickening in the sigmoid colon could be due to poor distention versus colitis. 2. Mild contour abnormality with some soft tissue fullness involving a small bowel segment in the le ft upper abdomen. This is likely related to peristalsis with underlying neoplasm considered much les s likely. A follow-up nonemergent CT with oral contrast could be useful to exclude a lesion. 3. Mild presacral soft tissue thickening. This is nonspecific but likely benign as it has been stable since 09/28/2021. 4. Biliary ductal dilatation is likely related to prior cholecystectomy. 5. Probable 1.5 cm uterine fibroid. Radiation optimization: All CT scans at this facility use at least one of these dose optimization david hniques: automated exposure control mA and/or kV adjustment per patient size (includes targeted exam s where dose is matched to clinical indication) or iterative reconstruction.
[2024-07-23 15:35] LABS: Urine Bacteria MANY /hpf (None Seen); Urine Blood 1+ /uL (Negative); Urine Clarity Turbid (Clear); Urine Color Yellow (Yellow); Urine Mucus FEW (None Seen); Urine Protein, UAD TRACE (Negative); Urine Specific Gravity 1.032 (1.001-1.035); Urine Squamous Epithelial Cell FEW /hpf (<5); Urine Urobilinogen Normal (Negative); Urine WBC 2 /HPF (0-5); Urine pH 5.5 (5.0-9.0)
--- NOTE | 2024-07-23 16:35 | DVHINCON2 ---
Date of service: Jul 23, 2024 Referring Physician Lizbeth Reason for Consultation GI bleed History of Present Illness Patient is a 41-year-old female with morbid obesity, history of lupus, history of prior sigmoid colitis, underwent colonoscopy [place] [address] Buckner found to have hemorrhoids and colitis, admitted with bloody stools and clots. Patient also complains of abdominal pain. Patient has a history of tobacco use disorder, history of autoimmune hepatitis. Patient has been having constipation as well prior to her GI bleeding. Patient is known to me from the clinic. Patient wants to leave AMA. She is concerned that she might have to wait in the emergency room for more than 24 hours before being admitted. Past Medical History 1. Autoimmune hepatitis 2. Colitis 3. Lupus 4. Hemorrhoids Past Surgical History Denies prior surgery Family History Denies Gastrointestinal diseases or malignancies Allergies: Coded Allergies: Aspirin (Verified Allergy, Intermediate, 09/28/21) Penicillins (Verified Allergy, Intermediate, 09/28/21) Home Meds Reported Medications Rosuvastatin Calcium (Rosuvastatin Calcium) 5 Mg Tab, 1 TAB PO 07/23/24 Gabapentin (Gabapentin) 300 Mg Cap, 300 MG PO TID, CAP 03/03/22 Baclofen (Baclofen) 20 Mg Tab, 20 MG PO TID, TAB 03/03/22 Celecoxib (CeleBREX CAPSULE) 100 Mg Cp, 100 MG PO, CAP 03/03/22 Trazodone Hcl (Trazodone Hcl) 100 Mg Tab, 100 MG PO QPM, TAB 03/03/22 Lurasidone Hydrochloride (LATUDA) 40 Mg Tab, 40 MG PO, TAB 03/03/22 Topiramate (Topiramate ER) 25 Mg Cap, 25 MG PO, CAP 03/03/22 Levetiracetam (Keppra) 500 Mg Tab, 500 MG PO BID, TAB 03/03/22 Current Medications Current Medications Medications (Trade) Dose Ordered Sig/Luis Route PRN Reason Start Time Stop Time Status Last Admin Pantoprazole Sodium (Protonix) 40 mg DAILY IV 07/24/24 10:00 Acetaminophen/ Hydrocodone Bitart ([place] 5/325MG Tab) 1 tab Q4HP PRN PO MODERATE PAIN (4-6 PAIN SCALE) 07/23/24 15:00 Ondansetron HCl (Zofran) 4 mg Q4HP PRN IV NAUSEA / VOMITING 07/23/24 15:00 Acetaminophen (Tylenol Tablet) 650 mg Q6HP PRN PO PAIN SCALE 1-3 OR TEMP>100.4 07/23/24 15:00 Morphine Sulfate 2 mg Q4HPRN PRN IV SEVERE PAIN (7-10 PAIN SCALE) 07/23/24 15:00 Trazodone HCl (Desyrel) 100 mg QPM PO 07/23/24 18:00 Hydralazine HCl (Apresoline Injection) 10 mg Q6HP PRN IV SBP>150 07/23/24 15:00 Losartan Potassium (Cozaar Tablet) 100 mg DAILY PO 07/23/24 15:00 Hydrochlorothiazide (hydroCHLOROthiazide TABLET) 25 mg DAILY PO 07/23/24 15:00 Nicotine (Nicoderm 7MG/ 24HR) 1 patch DAILY TD 07/24/24 10:00 Review of Systems Review of systems as per HPI Vital Signs Vital Signs Date Time Temp Pulse Resp B/P (MAP) Pulse Ox O2 Delivery O2 Flow Rate FiO2 07/23/24 15:03 95 16 100 Room Air* 0 21 07/23/24 15:02 98.9 155/105 (122) 98.9 Physical Exam General: Alert and oriented x4 no distress HEENT: Normocephalic atraumatic extraocular movements are intact PERRLA, O/P clear, no JVD Heart: Regular rate and rhythm Abdomen: Soft nontender nondistended Extremity: No clubbing cyanosis or edema ROBY: Deferred Labs/Diagnostic Data Labs Test 07/23/24 14:41 07/23/24 09:26 Range/Units Urine Color Yellow Yellow Urine Clarity Turbid H Clear Urine pH 5.5 5.0-9.0 Urine Specific [place] 1.032 1.001-1.035 Urine Protein Trace H Negative Urine Ketones Trace Negative Urine Blood 1+ H Negative /uL Urine Nitrite Negative Negative Urine Bilirubin Negative Negative Urine Urobilinogen Normal Negative mg/dL Urine Leukocyte Esterase Negative Negative /uL Urine RBC 2 0 - 4 /hpf Urine Microscopic WBC 2 0-5 /HPF Urine Squamous Epithelial Cells Few <5 /hpf Urine Bacteria Many H None Seen /hpf Urine Mucus Few None Seen Urine Glucose Normal Normal mg/dL White Blood Count 9.1 4.4-10.8 10^3/uL Red Blood Count 4.73 4.0-5.20 10^6/uL Hemoglobin 15.1 12.2-16.2 g/dL Hematocrit 44.7 36.0-46.0 % Mean Corpuscular Volume 94.5 80.0-100.0 fL Mean Corpuscular Hemoglobin 32.0 28.0-32.0 pg Mean Corpuscular Hemoglobin Concent 33.8 32.0-36.0 g/dL Red Cell Distribution Width 12.9 11.8-14.3 % Platelet Count 271 140-450 10^3/uL Mean Platelet Volume 8.2 6.9-10.8 fL Neutrophils (%) (Auto) 67.3 37.0-80.0 % Lymphocytes (%) (Auto) 23.7 10.0-50.0 % Monocytes (%) (Auto) 6.6 0.0-12.0 % Eosinophils (%) (Auto) 1.5 0.0-7.0 % Basophils (%) (Auto) 0.9 0.0-2.0 % Neutrophils # (Auto) 6.1 1.6-8.6 10 ^3/uL Lymphocytes # (Auto) 2.2 0.4-5.4 10 ^3/uL Monocytes # (Auto) 0.6 0-1.3 10 ^3/uL Eosinophils # (Auto) 0.1 0-0.8 10 ^3/uL Basophils # (Auto) 0.1 0-0.2 10 ^3/uL Nucleated Red Blood Cells 0.0 % Sodium Level 140 136-145 mmol/L Potassium Level 3.6 3.5-5.1 mmol/L Chloride Level 106 98-107 mmol/L Carbon Dioxide Level 25 20-31 mmol/L Anion Gap 9 5-15 Blood Urea Nitrogen 12 9-23 mg/dL Creatinine 0.77 0.550-1.02 mg/dL Glomerular Filtration Rate Calc 95 >90 mL/min BUN/Creatinine Ratio 15.6 10.0-20.0 Serum Glucose 99 74-106 mg/dL Calcium Level 9.9 8.7-10.4 mg/dL Assessment 1. GI bleed 2. History of colitis 3. Hemorrhoids 4. Lupus 5. Autoimmune hepatitis and 6. Abnormal imaging sigmoid colon nine Abnormal imaging likely due to under distention, and GI bleeding likely due to hemorrhoids in the setting of constipation. Patient had a prior colonoscopy. Problems(with codes): (1) Colitis (2) History of lupus (3) Hypertension (4) Generalized weakness (5) Lower GI bleed Plan/Recommendation 1. Stool softeners and/or laxatives as needed constipation 2. Consider outpatient colonoscopy as indicated if bleeding persists 3. Diet as tolerated 4. Medical management of hemorrhoids 5. If the patient is discharged home or leaves AMA follow up with me as an outpatient. Patient states that she already has a clinic appointment with me pending Plan discussed with: Patient MARIO ALBERTO DE LA GARZA MD Jul 23, 2024 16:35
[2024-07-23] MEDS ORDERED: traZODone HCL 50 MG TAB PO SCH (18:00)
[2024-07-24] MEDS ORDERED: PANTOPRAZOLE 40 MG/10 ML VIAL INJ IV SCH (10:00)
[2024-07-24] MEDS ORDERED: NICOTINE 7MG/24HR TOPICAL PATCH TD SCH (10:00)
== END 2024-07-23 17:08 | disposition left against medical advice (07) | DRG 378 ==
LOC: ER 08:30 → OVERFLOW 14:57
PROVIDERS: ADMIT Registered Nurse; ATTEND Registered Nurse
DX: K92.2 Gastrointestinal hemorrhage, unspecified (principal); Z68.41 Body mass index [BMI] 40.0-44.9, adult; K59.00 Constipation, unspecified; I10 Essential (primary) hypertension; Z53.29 Procedure and treatment not carried out because of patient's decision for other reasons; G47.00 Insomnia, unspecified; E66.01 Morbid (severe) obesity due to excess calories; K64.9 Unspecified hemorrhoids; M32.9 Systemic lupus erythematosus, unspecified; K75.4 Autoimmune hepatitis; F17.200 Nicotine dependence, unspecified, uncomplicated; Z88.0 Allergy status to penicillin; Z71.6 Tobacco abuse counseling; Z88.6 Allergy status to analgesic agent; Z79.899 Other long term (current) drug therapy; I16.0 Hypertensive urgency
CPT/HCPCS: 36415; 74177; 80048; 81001; 85025; 93005; G0378

== ENCOUNTER 2025-02-19 16:06 | Emergency (ER) | payer OTHER ==
[~2025-02-19] VITALS: Ht 162.6 cm; Wt 120.3 kg
[~2025-02-19 16:06] MED LIST changes: +ROSU5TAB24 PO
--- NOTE | 2025-02-19 16:54 | ED.PDOC ---
History of Present Illness HPI Comments 49F with SLE, colitis, HTN presented to the ER with the chief complaint of headache and elevated blood pressure, her BP at home was 176/122mmhg, headache is chronic and pressure trype, retro orbital, compliant with meds, denies dizziness, blurry vision, chest pain or shortmess of breath. home meds: losartan/ hctz 100/25 mg daily. CBC, BMP, EKG, TSH ordered Added amlodipine 5 mg to the regimen Chief Complaint: Headache Time Seen by MD: 16:09 Primary Care Provider: UNKNOWN Reviewed Notes: Medications Allergies: Coded Allergies: Aspirin (Verified Allergy, Intermediate, 09/28/21) Penicillins (Verified Allergy, Intermediate, 09/28/21) Home Meds Active Scripts Amlodipine Besylate (Amlodipine Besylate) 5 Mg Tab, 5 MG PO DAILY for 30 Days, #30 TAB 0 Refills Prov:JOHNIE BRODY RESIDENT 02/19/25 Reported Medications Rosuvastatin Calcium (Rosuvastatin Calcium) 5 Mg Tab, 1 TAB PO 07/23/24 Gabapentin (Gabapentin) 300 Mg Cap, 300 MG PO TID, CAP 03/03/22 Baclofen (Baclofen) 20 Mg Tab, 20 MG PO TID, TAB 03/03/22 Celecoxib (CeleBREX CAPSULE) 100 Mg Cp, 100 MG PO, CAP 03/03/22 Trazodone Hcl (Trazodone Hcl) 100 Mg Tab, 100 MG PO QPM, TAB 03/03/22 Lurasidone Hydrochloride (LATUDA) 40 Mg Tab, 40 MG PO, TAB 03/03/22 Topiramate (Topiramate ER) 25 Mg Cap, 25 MG PO, CAP 03/03/22 Levetiracetam (Keppra) 500 Mg Tab, 500 MG PO BID, TAB 03/03/22 Information Source: Patient Mode of Arrival: Ambulatory Past Medical History PAST MEDICAL HISTORY: HTN, Liver Surgical History: Denies all surgeries VIDEO LIBRARY ASSISTANT History: No Pertinent VIDEO LIBRARY ASSISTANT History Family History Family History: Reviewed,noncontributory to illness Social History Smoker: Non-Smoker Alcohol: Denies ETOH Use Drugs: Denies Drug Use Lives In: Home Constitutional: denies: chills, diaphoresis, fatigue, fever, malaise, sweats, weakness, others EENTM: denies: blurred vision, double vision, ear bleeding, ear discharge, ear drainage, ear pain, ear ringing, eye pain, eye redness, hearing loss, mouth pain, mouth swelling, nasal discharge, nose bleeding, nose congestion, nose pain, photophobia, tearing, throat pain, throat swelling, voice changes, others Respiratory: denies: cough, hemoptysis, orthopnea, SOB at rest, shortness of breath, SOB with excertion, stridor, wheezing, others Cardiovascular: denies: chest pain, dizzy spells, diaphoresis, Dyspnea on exertion, edema, irregular heart beat, left arm pain, lightheadedness, palpitations, PND, syncope, others Gastrointestinal: denies: abdomen distended, abdominal pain, blood streaked bowels, constipated, diarrhea, dysphagia, difficulty swallowing, hematemesis, melena, nausea, poor appetite, poor fluid intake, rectal bleeding, rectal pain, vomiting, others Genitourinary: denies: abnormal vagina bleeding, burning, dyspareunia, dysuria, flank pain, frequency, hematuria, incontinence, pain, , vagina disc harge, urgency, others Neurological: denies: dizziness, fainting, headache, left sided numbness, left sided weakness, numbness, paresthesia, pre-existing deficit, right sided numbness, right sided weakness, seizure, speech problems, tingling, tremors, weakness, others Musculoskeletal: denies: back pain, gout, joint pain, joint swelling, muscle pain, muscle stiffness, neck pain, others Integumetry: denies: bruises, change in color, change in hair/nails, dryness, laceration, lesions, lumps, rash, wounds, others Allergic/Immunocompromised: denies: Difficulty Healing, Frequent Infections, Hives, Itching, others Hematologic/Lymphatic: denies: anemia, blood clots, easy bleeding, easy bruising, swollen glands, others Endocrine: denies: excessive hunger, excessive sweating, excessive thirst, excessive urination, flushing, intolerance to cold, intolerance to heat, unexplained weight gain, unexplained weight loss, others Psychiatric: denies: anxiety, bipolar disorder, depression, hopeless, panic disorder, schizophrenia, sleepless, suicidal, others Physical Exam General Appearance: No Apparent Distress, Normal HEENT: Normal ENT Inspection, Pharynx Normal, TMs Normal Neck: Full Range of Motion, Non-Tender, Normal, Normal Inspection Respiratory: Chest Non-Tender, Lungs Clear, No Accessory Muscle Use, No Respiratory Distress, Normal Breath Sounds Cardiovascular: No Edema, No JVD, No Murmur, No Gallop, Normal Peripheral Pulses, Regular Rate/Rhythm Breast Exam: Deferred Gastrointestinal: No Organomegaly, Non Tender, No Pulsatile Mass, Normal Bowel Sounds, Soft Genitalia: Deferred Pelvic: Deferred Rectal: None Extremities: No pedal edema Neurologic: Alert, Headache, No Sensory Deficits Cerebellar Function: Normal Reflexes: Normal Skin: Dry, Normal Color, Warm Lymphatic: No Adenopathy Was a procedure done? Was a procedure done?: No EKG EKG : Boaz: Normal Block: None Differential Dx Considerations may include: htn urgency, htn emergency, non compliance X-Ray, Labs, Meds, VS Vital Signs Date Time Temp Pulse Resp B/P (MAP) Pulse Ox O2 Delivery O2 Flow Rate FiO2 02/19/25 18:34 132/103 02/19/25 18:25 98.2 83 13 132/103 (113) 97 98.2 02/19/25 16:09 98.0 103 20 141/94 95 98.0 Lab Test 02/19/25 17:07 Range/Units White Blood Count 7.8 4.4-10.8 10^3/uL Red Blood Count 4.65 4.0-5.20 10^6/uL Hemoglobin 15.2 12.2-16.2 g/dL Hematocrit 44.3 36.0-46.0 % Mean Corpuscular Volume 95.2 80.0-100.0 fL Mean Corpuscular Hemoglobin 32.6 H 28.0-32.0 pg Mean Corpuscular Hemoglobin Concent 34.3 32.0-36.0 g/dL Red Cell Distribution Width 13.8 11.8-14.3 % Platelet Count 286 140-450 10^3/uL Mean Platelet Volume 7.6 6.9-10.8 fL Neutrophils (%) (Auto) 58.2 37.0-80.0 % Lymphocytes (%) (Auto) 29.1 10.0-50.0 % Monocytes (%) (Auto) 9.2 0.0-12.0 % Eosinophils (%) (Auto) 2.3 0.0-7.0 % Basophils (%) (Auto) 1.2 0.0-2.0 % Neutrophils # (Auto) 4.6 1.6-8.6 10 ^3/uL Lymphocytes # (Auto) 2.3 0.4-5.4 10 ^3/uL Monocytes # (Auto) 0.7 0-1.3 10 ^3/uL Eosinophils # (Auto) 0.2 0-0.8 10 ^3/uL Basophils # (Auto) 0.1 0-0.2 10 ^3/uL Nucleated Red Blood Cells 0.1 % Sodium Level 142 136-145 mmol/L Potassium Level 3.6 3.5-5.1 mmol/L Chloride Level 105 98-107 mmol/L Carbon Dioxide Level 27 20-31 mmol/L Anion Gap 10 5-15 Blood Urea Nitrogen 10 9-23 mg/dL Creatinine 0.78 0.550-1.02 mg/dL Glomerular Filtration Rate Calc 94 >90 mL/min BUN/Creatinine Ratio 12.8 10.0-20.0 Serum Glucose 93 74-106 mg/dL Calcium Level 9.6 8.7-10.4 mg/dL Thyroid Stimulating Hormone (TSH) 1.07 0.55-4.78 uIU/mL Current Medications Medications (Trade) Dose Ordered Sig/Luis Route Start Time Stop Time Status Last Admin Amlodipine Besylate (Norvasc Tablet) 5 mg ONCE ONCE PO 02/19/25 17:00 02/19/25 17:01 DC 02/19/25 18:34 Time of 1ST Reevaluation: 16:00 Reevaluation 1ST: Improved Patient Education/Counseling: Need For Follow Up Family Education/Counseling: No Family Present SEPSIS Sepsis Screen Date sepsis recognized/suspect: Feb 19, 2025 Time Sepsis recognized/suspect: 1609 Recent Procedure: No On Antibiotic Therapy: No Respiratory Rate >20: No Heart Rate >90: No Temp<36 C (96.8 F) or >38.3 C: No SBP <90 or MAP <65 mmHG: No New Acute Mental Status Change: No Is the patient on CPAP, BIPAP,: No Physician Orders Electrocardigram (02/19/25 16:26) Vital Signs Date Time Temp Pulse Resp B/P (MAP) Pulse Ox O2 Delivery O2 Flow Rate FiO2 02/19/25 18:34 132/103 02/19/25 18:25 98.2 83 13 132/103 (113) 97 98.2 02/19/25 16:09 98.0 103 20 141/94 95 98.0 Laboratory Tests Test 02/19/25 17:07 White Blood Count 7.8 10^3/uL (4.4-10.8) Medications Medications Dose Ordered Sig/Luis Route Start Time Stop Time Status Last Admin Dose Admin Amlodipine Besylate 5 mg ONCE ONCE PO 02/19/25 17:00 02/19/25 17:01 DC 02/19/25 18:34 Departure 1 Departure Time of Disposition: 17:00 Impression: Primary Impression: Hypertensive urgency Disposition: 01 HOME / SELF CARE / HOMELESS Condition: Stable Additional Instructions: CBC, BMP unremarkable, repeat bp 138/83 mmhg, sent amlodipine 5 mg daily, patient to follow up with PCP e-Prescriptions Amlodipine Besylate (Amlodipine Besylate) 5 Mg Tab 5 MG PO DAILY for 30 Days, #30 TAB 0 Refills Prov: JOHNIE BRODY RESIDENT 02/19/25 Critical Care Note Critical Care Time?: No Stability Stability form required: No JOHNIE BRODY RESIDENT Feb 19, 2025 16:54
[2025-02-19 17:18] LABS: Hematocrit 44.3 % (36.0-46.0); Hemoglobin 15.2 g/dL (12.2-16.2); Mean Corpuscular Hemoglobin 32.6 pg (28.0-32.0); Mean Corpuscular Volume 95.2 fL (80.0-100.0); Nucleated Red Blood Cells % 0.1 %
[2025-02-19 17:27] LABS: Chloride 105 mmol/L (98-107); Potassium 3.6 mmol/L (3.5-5.1); Sodium 142 mmol/L (136-145)
[2025-02-19 17:28] LABS: Anion Gap 10 (5-15); Carbon Dioxide 27 mmol/L (20-31)
[2025-02-19 17:29] LABS: Calcium 9.6 mg/dL (8.7-10.4)
[2025-02-19 17:33] LABS: BUN/Creatinine Ratio 12.8 (10.0-20.0); Blood Urea Nitrogen 10 mg/dL (9-23); Glucose 93 mg/dL (74-106)
[2025-02-19] MEDS: POTASSIUM EFFERVESENT TAB 25 MEQ PO ONE (17:45)
[2025-02-19] MEDS ORDERED: AMLO1TAB22 PO (17:59)
[2025-02-19 18:25] VITALS: BP 132/103; PULSE 83; RESP 13; TEMP 98.2; O2SAT 97
--- NOTE | 2025-02-20 15:06 | ECG ---
[facility] Test Date: 2025-02-19 Test Time: 17:56:17 Pat Name: SHARON VÁSQUEZ Department: ED Room: Gender: F County Administrator: MAGGIE : 1975 Requested By: JOHNIE BRODY Order Number: [id number] Reading MD: Parth Morgan Measurements Intervals [place] Rate: 74 P: 46 TN: 149 QRS: 35 QRSD: 101 T: 53 QT: 392 QTc: 435 Interpretive Statements Sinus rhythm Electronically Signed On 02-20-2025 15:41:42 PDT by Parth Morgan Please click the below link to view image of tracing.
== END 2025-02-19 18:38 | disposition home or self-care (01) ==
LOC: ER 16:06
DX: I16.0 Hypertensive urgency (principal); I10 Essential (primary) hypertension; Z88.6 Allergy status to analgesic agent; Z79.899 Other long term (current) drug therapy; Z88.0 Allergy status to penicillin
CPT/HCPCS: 36415; 80048; 84443; 85025; 93005